=== PATIENT | female | born 1945 | race Caucasian/White ===

== ENCOUNTER → 2017-02-15 | Outpatient (REF) | payer MEDICARE, BC ==
[2017-02-15 19:12] LABS: ALBUMIN 3.6 GM/DL (3.2-5.2); ALBUMIN/GLOBULIN RATIO 1.29 (1.00-1.93); ALKALINE PHOSPHATASE 75 U/L (45-117); ALT/SGPT 21 U/L (12-78); ANION GAP 7 MEQ/L (8-16); AST/SGOT 12 U/L (15-37); BILIRUBIN,TOTAL 0.4 MG/DL (0.2-1.0); BLOOD UREA NITROGEN 20 MG/DL (7-18); CALCIUM LEVEL 8.8 MG/DL (8.8-10.2); CARBON DIOXIDE LEVEL 25 MEQ/L (21-32); CHLORIDE LEVEL 113 MEQ/L (98-107); CHOLESTEROL LEVEL 201 MG/DL (<200); CREATININE FOR GFR 0.87 MG/DL (0.55-1.02); GLOMERULAR FILTRATION RATE > 60.0 (>39); GLUCOSE, FASTING 134 MG/DL (83-110); POTASSIUM SERUM 4.3 MEQ/L (3.5-5.1); SODIUM LEVEL 145 MEQ/L (136-145); TOTAL PROTEIN 6.4 GM/DL (6.4-8.2); TRIGLYCERIDES LEVEL 144 MG/DL (<150)
[2017-02-15 19:30] LABS: BASO % 0.5 % (0.0-1.0); EOS # 0.7 K/mm3 (0.0-0.50); EOS % 14.7 % (0.0-3.0); LARGE UNSTAINED CELL # 0.1 K/mm3 (0.0-0.4); LYMPH # 1.3 K/mm3 (1.5-4.5); LYMPH % 25.2 % (24.0-44.0); MEAN CORPUSCULAR HEMOGLOBIN 32.2 pg (27.0-33.0); MEAN CORPUSCULAR HGB CONC 32.9 g/dl (32.0-36.5); MEAN CORPUSCULAR VOLUME 97.9 fl (80.0-96.0); MONO # 0.3 K/mm3 (0.0-0.8); MONO % 5.6 % (0.0-5.0); NEUTROPHILS # 2.6 K/mm3 (1.8-7.7); PLATELET COUNT, AUTOMATED 303 k/mm3 (150-450); RED CELL DISTRIBUTION WIDTH 13.2 % (11.5-14.5)
== END ==
LOC: M SFHCCAPE 07:23
PROVIDERS: ATTEND Physician Assistant
DX: E03.9 Hypothyroidism, unspecified (principal); R73.09 Other abnormal glucose; E78.5 Hyperlipidemia, unspecified; I10 Essential (primary) hypertension

== ENCOUNTER → 2017-02-17 | Outpatient (CLI) | payer MEDICARE, BC ==
--- NOTE | 2017-02-17 15:03 | REP ---
Clinical: Asthma . Comparison: None . Technique: PA and lateral. Findings: The mediastinum and cardiac silhouette are normal. The lung rodgers are clear and without acute consolidation, effusion, or pneumothorax. The skeletal structures are intact and normal. Impression: 1. No acute cardiopulmonary process.
== END ==
LOC: M CLY 14:34
PROVIDERS: ATTEND Physician Assistant
DX: J45.20 Mild intermittent asthma, uncomplicated (principal)

== ENCOUNTER → 2017-05-18 | Outpatient (REF) | payer MEDICARE, BC ==
[2017-05-18 16:48] LABS: ALBUMIN 3.6 GM/DL (3.2-5.2); ALKALINE PHOSPHATASE 89 U/L (45-117); ALT/SGPT 20 U/L (12-78); ANION GAP 11 MEQ/L (8-16); AST/SGOT 12 U/L (15-37); BILIRUBIN,TOTAL 0.5 MG/DL (0.2-1.0); BLOOD UREA NITROGEN 21 MG/DL (7-18); CALCIUM LEVEL 9.2 MG/DL (8.8-10.2); CARBON DIOXIDE LEVEL 23 MEQ/L (21-32); CHLORIDE LEVEL 112 MEQ/L (98-107); CREATININE FOR GFR 0.87 MG/DL (0.55-1.02); GLOMERULAR FILTRATION RATE > 60.0 (>39); GLUCOSE, FASTING 147 MG/DL (83-110); POTASSIUM SERUM 4.5 MEQ/L (3.5-5.1); SODIUM LEVEL 146 MEQ/L (136-145); TOTAL PROTEIN 6.6 GM/DL (6.4-8.2)
== END ==
LOC: M SFHCCAPE 07:13
PROVIDERS: ATTEND Physician Assistant
DX: E11.9 Type 2 diabetes mellitus without complications (principal)

== ENCOUNTER → 2017-08-24 | Outpatient (REF) | payer MEDICARE, BC ==
[2017-08-24 19:30] LABS: BASO % 0.7 % (0.0-1.0); EOS # 0.6 10^3/uL (0.0-0.50); EOS % 9.4 % (0.0-3.0); IMMATURE GRANULOCYTE % 0.2 % (0-0); LYMPH # 1.5 10^3/uL (1.5-4.5); LYMPH % 25.7 % (24.0-44.0); MEAN CORPUSCULAR HEMOGLOBIN 30.5 pg (27.0-33.0); MEAN CORPUSCULAR HGB CONC 33.1 g/dl (32.0-36.5); MEAN CORPUSCULAR VOLUME 92.2 fl (80.0-96.0); MONO # 0.5 10^3/uL (0.0-0.8); MONO % 8.1 % (0.0-5.0); NEUTROPHILS # 3.3 10^3/uL (1.8-7.7); NEUTROPHILS % 55.9 % (36.0-66.0); PLATELET COUNT, AUTOMATED 295 10^3/uL (150-450); RED CELL DISTRIBUTION WIDTH 12.8 % (11.5-14.5)
[2017-08-24 20:27] LABS: ALBUMIN 3.9 GM/DL (3.2-5.2); ALBUMIN/GLOBULIN RATIO 1.44 (1.00-1.93); ALKALINE PHOSPHATASE 78 U/L (45-117); ALT/SGPT 22 U/L (12-78); ANION GAP 8 MEQ/L (8-16); AST/SGOT 14 U/L (7-37); BILIRUBIN,TOTAL 0.4 MG/DL (0.2-1.0); BLOOD UREA NITROGEN 19 MG/DL (7-18); CALCIUM LEVEL 9.2 MG/DL (8.8-10.2); CARBON DIOXIDE LEVEL 25 MEQ/L (21-32); CHLORIDE LEVEL 109 MEQ/L (98-107); CHOLESTEROL LEVEL 218 MG/DL (<200); CREATININE FOR GFR 0.84 MG/DL (0.55-1.02); GLOMERULAR FILTRATION RATE > 60.0 (>39); GLUCOSE, FASTING 129 MG/DL (83-110); POTASSIUM SERUM 4.4 MEQ/L (3.5-5.1); SODIUM LEVEL 142 MEQ/L (136-145); TOTAL PROTEIN 6.6 GM/DL (6.4-8.2); TRIGLYCERIDES LEVEL 115 MG/DL (<150)
== END ==
LOC: M SFHCCAPE 07:25
PROVIDERS: ATTEND Physician Assistant
DX: E11.69 Type 2 diabetes mellitus with other specified complication (principal)

== ENCOUNTER → 2017-11-30 | Outpatient (REF) | payer MEDICARE, BC ==
[2017-11-30 17:36] LABS: ALBUMIN/GLOBULIN RATIO 1.48 (1.00-1.93); ALKALINE PHOSPHATASE 71 U/L (45-117); ALT/SGPT 21 U/L (12-78); ANION GAP 9 MEQ/L (8-16); AST/SGOT 17 U/L (7-37); BILIRUBIN,TOTAL 0.5 MG/DL (0.2-1.0); BLOOD UREA NITROGEN 19 MG/DL (7-18); CALCIUM LEVEL 9.3 MG/DL (8.8-10.2); CARBON DIOXIDE LEVEL 25 MEQ/L (21-32); CHLORIDE LEVEL 109 MEQ/L (98-107); CREATININE FOR GFR 0.94 MG/DL (0.55-1.30); FREE T4 1.33 NG/DL (0.76-1.46); GLOMERULAR FILTRATION RATE > 60.0 (>39); GLUCOSE, FASTING 115 MG/DL (70-100); POTASSIUM SERUM 4.4 MEQ/L (3.5-5.1); SODIUM LEVEL 143 MEQ/L (136-145); TOTAL PROTEIN 6.7 GM/DL (6.4-8.2)
[2017-11-30 21:42] LABS: ESTIMATED AVERAGE GLUCOSE 123 MG/DL (60-110); HEMOGLOBIN A1c 5.9 %
== END ==
LOC: M SFHCCAPE 07:25
DX: E11.69 Type 2 diabetes mellitus with other specified complication (principal); E03.9 Hypothyroidism, unspecified
CPT/HCPCS: 84443

== ENCOUNTER → 2018-03-15 | Outpatient (REF) | payer MEDICARE, BC ==
[2018-03-15 16:48] LABS: ANION GAP 8 MEQ/L (8-16); BLOOD UREA NITROGEN 21 MG/DL (7-18); CALCIUM LEVEL 9.4 MG/DL (8.8-10.2); CARBON DIOXIDE LEVEL 26 MEQ/L (21-32); CHLORIDE LEVEL 110 MEQ/L (98-107); CHOLESTEROL LEVEL 181 MG/DL (<200); CREATININE FOR GFR 0.94 MG/DL (0.55-1.30); GLOMERULAR FILTRATION RATE > 60.0 (>39); GLUCOSE, FASTING 100 MG/DL (70-100); HDL CHOLESTEROL 58 MG/DL (>40); LDL CHOLESTEROL 103.8 MG/DL (<100); NON-HDL-C 123 MG/DL; POTASSIUM SERUM 4.5 MEQ/L (3.5-5.1); SODIUM LEVEL 144 MEQ/L (136-145); TRIGLYCERIDES LEVEL 96 MG/DL (<150)
[2018-03-15 16:54] LABS: ESTIMATED AVERAGE GLUCOSE 123 MG/DL (60-110); HEMOGLOBIN A1c 5.9 %
== END ==
LOC: M SFHCCAPE 07:35
DX: E11.69 Type 2 diabetes mellitus with other specified complication (principal); E78.5 Hyperlipidemia, unspecified
CPT/HCPCS: 83036

== ENCOUNTER → 2018-09-06 | Outpatient (REF) | payer MEDICARE, BC ==
[2018-09-06 16:42] LABS: ANION GAP 7 MEQ/L (8-16); BLOOD UREA NITROGEN 18 MG/DL (7-18); CALCIUM LEVEL 9.2 MG/DL (8.8-10.2); CARBON DIOXIDE LEVEL 27 MEQ/L (21-32); CHLORIDE LEVEL 110 MEQ/L (98-107); CHOLESTEROL LEVEL 209 MG/DL (<200); CREATININE FOR GFR 0.86 MG/DL (0.55-1.30); GLOMERULAR FILTRATION RATE > 60.0 (>39); GLUCOSE, FASTING 107 MG/DL (70-100); HDL CHOLESTEROL 62 MG/DL (>40); LDL CHOLESTEROL 131 MG/DL (<100); NON-HDL-C 147 MG/DL; POTASSIUM SERUM 4.6 MEQ/L (3.5-5.1); SODIUM LEVEL 144 MEQ/L (136-145); THYROID STIMULATING HORMONE 0.925 uIU/ML (0.358-3.740); TRIGLYCERIDES LEVEL 79 MG/DL (<150)
[2018-09-06 17:10] LABS: ESTIMATED AVERAGE GLUCOSE 126 MG/DL (60-110)
== END ==
LOC: M SFHCCAPE 07:11
DX: E11.8 Type 2 diabetes mellitus with unspecified complications (principal); E78.5 Hyperlipidemia, unspecified; I10 Essential (primary) hypertension; E03.9 Hypothyroidism, unspecified
CPT/HCPCS: 84443

== ENCOUNTER → 2019-03-22 | Outpatient (REF) | payer MEDICARE, BC ==
[2019-03-22 18:19] LABS: ALBUMIN 3.7 GM/DL (3.2-5.2); ALT/SGPT 23 U/L (12-78); BILIRUBIN,TOTAL 0.5 MG/DL (0.2-1.0); BLOOD UREA NITROGEN 24 MG/DL (7-18); CALCIUM LEVEL 9.4 MG/DL (8.8-10.2); CARBON DIOXIDE LEVEL 26 MEQ/L (21-32); CHLORIDE LEVEL 111 MEQ/L (98-107); CHOLESTEROL LEVEL 210 MG/DL (<200); CHOLESTEROL RISK RATIO 3.333 (<5); CREATININE FOR GFR 0.89 MG/DL (0.55-1.30); GLOMERULAR FILTRATION RATE > 60.0 (>39); GLUCOSE, FASTING 103 MG/DL (70-100); HDL CHOLESTEROL 63 MG/DL (>40); LDL CHOLESTEROL 130 MG/DL (<100); NON-HDL-C 147 MG/DL; POTASSIUM SERUM 4.8 MEQ/L (3.5-5.1); SODIUM LEVEL 144 MEQ/L (136-145); THYROID STIMULATING HORMONE 0.795 uIU/ML (0.358-3.740); TOTAL PROTEIN 6.9 GM/DL (6.4-8.2); TRIGLYCERIDES LEVEL 84 MG/DL (<150)
[2019-03-22 18:31] LABS: HEMOGLOBIN A1c 5.9 %
[2019-03-22 18:36] LABS: CREATININE, URINE 75.6 MG/DL; MALB URINE SIEMENS 17.2 MG/L; MAU/CREAT RATIO 22.7 MCG/MG (0.0-30.0)
== END ==
LOC: M SFHCCAPE 07:22
PROVIDERS: ATTEND Family Medicine
DX: I10 Essential (primary) hypertension (principal); E11.8 Type 2 diabetes mellitus with unspecified complications; E78.5 Hyperlipidemia, unspecified; E03.9 Hypothyroidism, unspecified

== ENCOUNTER → 2019-10-05 | Outpatient (REF) | payer MEDICARE, BC ==
[2019-10-05 17:13] LABS: HEMATOCRIT 41.7 % (36.0-47.0); HEMOGLOBIN 13.9 g/dl (12.0-15.5); MEAN CORPUSCULAR HEMOGLOBIN 31.7 pg (27.0-33.0); MEAN CORPUSCULAR HGB CONC 33.3 g/dl (32.0-36.5); PLATELET COUNT, AUTOMATED 250 10^3/uL (150-450); RED BLOOD COUNT 4.39 10^6/uL (4.00-5.40); WHITE BLOOD COUNT 6.8 10^3/uL (4.0-10.0)
[2019-10-05 17:40] LABS: ALBUMIN 3.8 GM/DL (3.2-5.2); ALT/SGPT 19 U/L (12-78); BILIRUBIN,TOTAL 0.6 MG/DL (0.2-1.0); BLOOD UREA NITROGEN 19 MG/DL (7-18); CALCIUM LEVEL 9.3 MG/DL (8.8-10.2); CARBON DIOXIDE LEVEL 23 MEQ/L (21-32); CHLORIDE LEVEL 110 MEQ/L (98-107); CHOLESTEROL LEVEL 222 MG/DL (<200); CHOLESTEROL RISK RATIO 4.036 (<5); CREATININE FOR GFR 0.95 MG/DL (0.55-1.30); GLOMERULAR FILTRATION RATE > 60.0 (>39); GLUCOSE, FASTING 119 MG/DL (70-100); HDL CHOLESTEROL 55 MG/DL (>40); LDL CHOLESTEROL 123 MG/DL (<100); NON-HDL-C 167 MG/DL; POTASSIUM SERUM 4.4 MEQ/L (3.5-5.1); SODIUM LEVEL 142 MEQ/L (136-145); TOTAL PROTEIN 6.5 GM/DL (6.4-8.2); TRIGLYCERIDES LEVEL 221 MG/DL (<150)
[2019-10-05 18:05] LABS: HEMOGLOBIN A1c 6.2 %
== END ==
LOC: M SFHCCAPE 07:48
PROVIDERS: ATTEND Family Medicine
DX: M17.0 Bilateral primary osteoarthritis of knee (principal); E11.8 Type 2 diabetes mellitus with unspecified complications; E78.5 Hyperlipidemia, unspecified; E03.9 Hypothyroidism, unspecified

== ENCOUNTER → 2020-03-25 | Outpatient (REF) | payer MEDICARE, BC ==
[2020-03-25 12:15] LABS: BASO % 0.5 % (0.0-1.0); EOS # 0.5 10^3/uL (0.0-0.5); EOS % 8.4 % (0.0-3.0); HEMATOCRIT 45.1 % (36.0-47.0); LYMPH # 1.3 10^3/uL (1.5-5.0); MEAN CORPUSCULAR HEMOGLOBIN 32.5 pg (27.0-33.0); MEAN CORPUSCULAR HGB CONC 33.3 g/dl (32.0-36.5); MEAN CORPUSCULAR VOLUME 97.8 fl (80.0-96.0); MONO # 0.5 10^3/uL (0.0-0.8); MONO % 8.5 % (0.0-5.0); NEUTROPHILS # 3.9 10^3/uL (1.5-8.5); NEUTROPHILS % 61.1 % (36.0-66.0); PLATELET COUNT, AUTOMATED 273 10^3/uL (150-450); RED BLOOD COUNT 4.61 10^6/uL (4.00-5.40); WHITE BLOOD COUNT 6.3 10^3/uL (4.0-10.0)
[2020-03-25 12:25] LABS: ALBUMIN 3.8 GM/DL (3.2-5.2); BILIRUBIN,TOTAL 0.6 MG/DL (0.2-1.0); CALCIUM LEVEL 9.7 MG/DL (8.8-10.2); CHOLESTEROL RISK RATIO 3.728 (<5); FREE T4 1.45 NG/DL (0.76-1.46); GLOMERULAR FILTRATION RATE 57.9 (>39); POTASSIUM SERUM 4.7 MEQ/L (3.5-5.1); THYROID STIMULATING HORMONE 1.84 uIU/ML (0.358-3.740); TOTAL PROTEIN 6.9 GM/DL (6.4-8.2)
[2020-03-25 12:33] LABS: MALB URINE SIEMENS 8.1 MG/L; MAU/CREAT RATIO 6.1 MCG/MG (0.0-30.0)
[2020-03-25 15:14] LABS: HEMOGLOBIN A1c 6.8 %
== END ==
LOC: M SFHCCLAY 07:06
PROVIDERS: ATTEND Family Medicine
DX: E11.8 Type 2 diabetes mellitus with unspecified complications (principal); I10 Essential (primary) hypertension; E03.9 Hypothyroidism, unspecified; E78.5 Hyperlipidemia, unspecified; M17.0 Bilateral primary osteoarthritis of knee

== ENCOUNTER → 2020-08-08 | Outpatient (CLI) | payer MEDICARE, BC ==
--- NOTE | 2020-08-13 19:29 | REPMRS ---
Patient History The patient states she has not had a clinical breast exam in over a year. Patient is postmenopausal and is nulliparous. No known family history of cancer. Digital Woman Screen Mammo: August 08, 2020 - Exam #: [id number] Bilateral CC and MLO view(s) were taken. Technologist: Kaila Medina, Technologist Prior study comparison: July 20, 2019, bilateral digital mammo screening bilat, performed at [facility]. July 04, 2018, bilateral digital mammo screening bilat, performed at [facility]. June 23, 2017, bilateral digital mammo screening bilat, performed at [facility]. FINDINGS: The breast tissue is almost entirely fat. The Volpara volumetric breast density category is: A. There has been no change in the appearance of the mammogram from the prior studies. There is no interval development of dominant mass, architectural distortion, or grouped microcalcification typical of malignancy. 3-D tomosynthesis shows no additional findings. Assessment: BI-RADS/ACR category 1 mammogram. Negative Mammogram. Recommendation Routine screening mammogram of both breasts in 1 year (for women over age 40). This patient's Lifetime Breast Cancer RIsk is estimated at 4.3 %. This mammogram was interpreted with the aid of an FDA-approved computer-aided dectection system. Electronically Signed By: Soham Nicholson MD 08/13/20 [id number]
== END ==
LOC: M WHC 08:35
PROVIDERS: ATTEND Family Medicine
DX: Z12.31 Encounter for screening mammogram for malignant neoplasm of breast (principal)

== ENCOUNTER → 2020-10-02 | Outpatient (REF) | payer MEDICARE, BC ==
[2020-10-02 12:05] LABS: CREATININE FOR GFR 1.12 MG/DL (0.55-1.30); GLOMERULAR FILTRATION RATE 50.8 (>39); POTASSIUM SERUM 4.7 MEQ/L (3.5-5.1); THYROID STIMULATING HORMONE 1.69 uIU/ML (0.358-3.740)
[2020-10-02 14:40] LABS: HEMOGLOBIN A1c 6.3 %
== END ==
LOC: M SFHCCLAY 09:08
PROVIDERS: ATTEND Family Medicine
DX: E11.8 Type 2 diabetes mellitus with unspecified complications (principal); E03.9 Hypothyroidism, unspecified

== ENCOUNTER 2020-11-08 07:19 | Emergency (ER) | payer MEDICARE, BC ==
[~2020-11-08] VITALS: Ht 175.3 cm; Wt 104.5 kg
--- OUTSIDE RECORDS SUMMARY | 2020-11-08 07:28 | CCD ---
Author Author [facility] Organization [facility] Address Unknown Phone Unavailable Care Team Providers Care Boilermaking Supervisor Name Role Phone JUAN HORNE MD Unavailable Unavailable JUAN HORNE MD Unavailable Unavailable JUAN HORNE MD Unavailable Unavailable JUAN HORNE MD Unavailable Unavailable JUAN HORNE MD Unavailable Unavailable JUAN HORNE MD Unavailable Unavailable JUAN HORNE MD Unavailable Unavailable JUAN HORNE MD Unavailable Unavailable JUAN HORNE MD Unavailable Unavailable JUAN HORNE MD Unavailable Unavailable JUAN HORNE MD Unavailable Unavailable JUAN HORNE MD Unavailable Unavailable JUAN HORNE MD Unavailable Unavailable JUAN HORNE MD Unavailable Unavailable JUAN HORNE MD Unavailable Unavailable JUAN HORNE MD Unavailable Unavailable JUAN HORNE MD Unavailable Unavailable JUAN HORNE MD Unavailable Unavailable JUAN HORNE MD Unavailable Unavailable JUAN HORNE MD Unavailable Unavailable JUAN HORNE MD Unavailable Unavailable JUAN HORNE MD Unavailable Unavailable JUAN HORNE MD Unavailable Unavailable JUAN HORNE MD Unavailable Unavailable JUAN HORNE MD Unavailable Unavailable JUAN HORNE MD Unavailable Unavailable JUAN HORNE MD Unavailable Unavailable JUAN HORNE MD Unavailable Unavailable JUAN HORNE MD Unavailable Unavailable JUAN HORNE MD Unavailable Unavailable JUAN HORNE MD Unavailable Unavailable JUAN HORNE MD Unavailable Unavailable JUAN HORNE MD Unavailable Unavailable JUAN HORNE MD Unavailable Unavailable JUAN HORNE MD Unavailable Unavailable CHROSTOWSKI, JUAN LOCKHART Unavailable Unavailable CHROSTOWSKI, JUAN LOCKHART Unavailable Unavailable CHROSTOWSKI, JUAN LOCKHART Unavailable Unavailable CHROSTOWSKI, JUAN LOCKHART Unavailable Unavailable CHROSTOWSKI, JUAN LOCKHART Unavailable Unavailable [place], L Jayna PHOTOVOLTAIC INSTALLER Unavailable Unavailable Glenn, L Jayna PHOTOVOLTAIC INSTALLER Unavailable Unavailable Glenn, L Jayna PHOTOVOLTAIC INSTALLER Unavailable Unavailable [place], L Jayna PHOTOVOLTAIC INSTALLER Unavailable Unavailable [place], L Jayna PHOTOVOLTAIC INSTALLER Unavailable Unavailable [place], L Jayna PHOTOVOLTAIC INSTALLER Unavailable Unavailable Glenn, L Jayna PHOTOVOLTAIC INSTALLER Unavailable Unavailable [place], L Jayna PHOTOVOLTAIC INSTALLER Unavailable Unavailable [place], L Jayna PHOTOVOLTAIC INSTALLER Unavailable Unavailable Glenn, L Jayna PHOTOVOLTAIC INSTALLER Unavailable Unavailable [place], L Jayna PHOTOVOLTAIC INSTALLER Unavailable Unavailable Glenn, L Jayna PHOTOVOLTAIC INSTALLER Unavailable Unavailable Glenn, L Jayna PHOTOVOLTAIC INSTALLER Unavailable Unavailable Glenn, L Jayna PHOTOVOLTAIC INSTALLER Unavailable Unavailable [place], L Jayna PHOTOVOLTAIC INSTALLER Unavailable Unavailable [place], L Jayna PHOTOVOLTAIC INSTALLER Unavailable Unavailable [place], L Jayna PHOTOVOLTAIC INSTALLER Unavailable Unavailable [place], L Jayna PHOTOVOLTAIC INSTALLER Unavailable Unavailable Glenn, L Jayna PHOTOVOLTAIC INSTALLER Unavailable Unavailable [place], L Jayna PHOTOVOLTAIC INSTALLER Unavailable Unavailable [place], L Jayna PHOTOVOLTAIC INSTALLER Unavailable Unavailable Glenn, L Jayna PHOTOVOLTAIC INSTALLER Unavailable Unavailable Glenn, L Jayna PHOTOVOLTAIC INSTALLER Unavailable Unavailable Glenn, L Jayna PHOTOVOLTAIC INSTALLER Unavailable Unavailable Glenn, L Jayna PHOTOVOLTAIC INSTALLER Unavailable Unavailable Glenn, L Jayna PHOTOVOLTAIC INSTALLER Unavailable Unavailable [place], L Jayna PHOTOVOLTAIC INSTALLER Unavailable Unavailable Glenn, L Jayna PHOTOVOLTAIC INSTALLER Unavailable Unavailable Glenn, L Jayna PHOTOVOLTAIC INSTALLER Unavailable Unavailable [place], L Jayna PHOTOVOLTAIC INSTALLER Unavailable Unavailable Glenn, L Jayna PHOTOVOLTAIC INSTALLER Unavailable Unavailable Glenn, L Jayna PHOTOVOLTAIC INSTALLER Unavailable Unavailable Glenn, L Jayna PHOTOVOLTAIC INSTALLER Unavailable Unavailable Re-disclosure Warning The records that you are about to access may contain information from federally-assisted alcohol or drug abuse programs. If such information is present, then the following federally mandated warning applies: This information has been disclosed to you from records protected by federal confidentiality rules (42 CFR part 2). The federal rules prohibit you from making any further disclosure of this information unless further disclosure is expressly permitted by the written consent of the person to whom it pertains or as otherwise permitted by 42 CFR part 2. A general authorization for the release of medical or other information is NOT sufficient for this purpose. The Federal rules restrict any use of the information to criminally investigate or prosecute any alcohol or drug abuse patient.The records that you are about to access may contain highly sensitive health information, the redisclosure of which is protected by Article 27-F of the [facility] Public Health law. If you continue you may have access to information: Regarding HIV / AIDS; Provided by facilities licensed or operated by the [facility] Office of Mental Health; or Provided by the [facility] Office for People With Developmental Disabilities. If such information is present, then the following [facility] mandated warning applies: This information has been disclosed to you from confidential records which are protected by state law. State law prohibits you from making any further disclosure of this information without the specific written consent of the person to whom it pertains, or as otherwise permitted by law. Any unauthorized further disclosure in violation of state law may result in a fine or fci sentence or both. A general authorization for the release of medical or other information is NOT sufficient authorization for further disc losure. Encounters Encounter Providers Location Date Indications Data Source(s ) Outpatient Attender: JUAN HORNE MD Main Office 10/16/2020 08:15:00 AM EST [facility] ([facility]) Outpatient [address] [place] [phone] 10/15/2020 12:00:00 AM EST eCW1 (Formerly [facility]) Outpatient [address] [place] [phone] 07/04/2020 12:00:00 AM EDT eCW1 (Formerly [facility]) Outpatient Attender: Jayna ALMODOVAR Main Office 10/17/2019 08:30:0 0 AM EST [facility] ([facility]) [facility] [place] [address] [place] [phone] 10/09/2019 12:00:00 AM EST eCW1 (Formerly [facility]) [facility] Yeimi Ng [address] [place] [phone] 10/05/2019 12:00:00 AM EST eCW1 (Formerly [facility]) Immunizations Vaccine Date Status Description Data Source(s) influenza, recombinant, quadrIvalent,injectable, prese rvative free 07/04/2020 02:09:00 PM EDT completed eCW1 ([facility]) influenza, recombinant, quadrIvalent,injectable, prese rvative free 07/04/2020 02:09:00 PM EDT completed eCW1 ([facility]) Tdap 04/04/2020 10:27:00 AM EDT completed e CW1 ([facility]) Tdap 04/04/2020 10:27:00 AM EDT completed e CW1 ([facility]) pneumococcal polysaccharide PPV23 04/04/2020 10:26:00 AM EDT comple ranjan eCW1 ([facility]cludes [facility]) pneumococcal polysaccharide PPV23 04/04/2020 10:26:00 AM EDT comple ranjan eCW1 ([facility]cludes [facility]) Medications Medication Brand Name Start Date Product Form Dose Route Admi nistrative Instructions Pharmacy Instructions Status Indications Reaction Description Data Source(s) Budesonide 0.08 MG/ACTUAT / formoterol f umarate 0.0045 MG/ACTUAT Metered Dose Inhaler Symbicort 80-4.5 mcg/actuation inhalation HFA aerosol inhaler Symbicort 80-4.5 mcg/actuation inhalation HFA aerosol inhaler 10/07/2018 11:35:51 AM EST 0 completed Symbicort ZINA NWHERBIE ([facility]) fluticasone 50 mcg/actuation nasal spray,suspension Fl uticasone propionate 0.05 MG/ACTUAT Metered Dose Nasal [place] 10/07/2018 11:35:50 AM EST 0 completed fluticasone [facility] ([facility] Insurance Providers Payer name Policy type / Coverage type Policy ID Covered alliance party ID Covered alliance party's relationship to you Policy You Plan Information MEDICARE [id number] SP [id number] [place]/307 [id number] SP [id number] [place]/[id number] SP [id number] Medicare [place] [id number] 18 [id number] [facility] [id number] 18 [id number] ANSI-Commercial [id number] ANSI-Medicare Part B [id number] ANSI-Commercial [id number] ANSI-Medicare Part B [id number] ANSI-Medicare Part B [id number] ANSI-Commercial [id number] ANSI-Medicare Part B [id number] ANSI-Commercial [id number] BCBS .[id number] Blue Cross/Blue Shield .[id number] Medicare .[id number] Medicare Part B .[id number] ANSI-Commercial [id number] [facility]-Medicare Part B [id number] ANSI-Commercial [id number] [facility]-Medicare Part B [id number] MEDICARE [id number] SP [id number] A Medicare [place] [id number] 18 [id number] [place] P[place] 302/307 [id number] SP [id number] MEDICARE [id number] SP [id number] A SELF PAY 5 UNAVAILABLE 1 UNAVAILA BLE BLUE CROSS [place] 1 [id number] Problems, Conditions, and Diagnoses Code Display Name Description Problem Type Effective Dates Data Source(s) Z23 [id number] Encounter for immunization Problem 0 12:00:00 AM EDT eCW1 ([facility]) I11.9 Hypertensive heart disease without conge stive heart failure Hypertensive heart disease without heart failure Problem 04/04/2020 12:00:00 AM E DT eCW1 ([facility]) E03.9 [id number] Acquired hypothyroidism Problem 04/04/2020 1 2:00:00 AM EDT eCW1 ([facility]) [id number] Allergic rhinitis caused by mold Allergi c rhinitis caused by mold Problem 10/17/2019 12:00:00 AM EST [facility] ([facility]) Note: 3+ reaction to mold spores on intr adermal test completed in 2017. Surgeries/Procedures Procedure Description Date Indications Data Source(s) BRNCDILAT RSPSE SPMTRY PRE&POST-BRNCDILAT ADMN 021 12:00:00 AM EST [facility] ([facility]) Immunization: Flublok Quadrivalent (18 years & older) 0.5mL IM (Influenza) 07/04/2020 12:00:00 AM EDT [facility]CW[facility] BRNCDILAT RSPSE SPMTRY PRE&POST-BRNCDILAT ADMN 020 12:00:00 AM EST [facility] ([facility]) Office Visit, Est Pt., Level 2 FC 10/09/2019 12:00:00 AM EST eCW1 ([facility]) Office Visit, Est Pt., Level 4 PC 10/09/2019 12:00:00 AM EST eCW1 ([facility]) VENIPUNCT, ROUTINE* 10/05/2019 12:00:00 AM EST eCW1 ([facility]) Results ID Date Data Source TSH 10/05/2019 12:00:00 AM EST eCW1 ([facility]) Name Value Range Interpretation Code Description Data Teresa rce(s) Supporting Document(s) 1.640 0.358-3.740 THYROID STIMULATING HORM ONE eCW1 ([facility]) ID Date Data Source LIPID PANEL (CARDIAC RISK) 10/05/2019 12:00:00 AM EST eCW1 ( [facility]) Name Value Range Interpretation Code Description Data Teresa rce(s) Supporting Document(s) Triglyceride [Mass/volume] in Serum or Plasma by calculation 221 <150 TRIGLYCERIDES LEVEL eCW1 ([facility]) 167 NON-HDL-C eCW1 ([facility]) Cholesterol in LDL [Mass/volume] in Serum or Plasma by calculation 123 <100 LDL CHOLESTEROL [facility] ([facility]) 4.036 <5 CHOLESTEROL RISK RATIO eCW1 ([facility]) Cholesterol [Moles/volume] in Serum or Plasma 222 <200 CHOLESTEROL LEVEL [facility] ([facility] Includes [facility]) Cholesterol in HDL [Moles/volume] in Serum or Plasma 55 >40 HDL CHOLESTEROL eCW1 ([facility]) ID Date Data Source [id number] 10/05/2019 12:00:00 AM EST eCW1 ([facility]) Name Value Range Interpretation Code Description Data Teresa rce(s) Supporting Document(s) Hemoglobin A1c/Hemoglobin.total in Blood 6.2 HEMOGLOBIN A1c eCW1 ([facility]) ID Date Data Source Comprehensive Metabolic Profile (CMP) 10/05/2019 12:00:00 AM EST eCW1 ([facility]) Name Value Range Interpretation Code Description Data Teresa rce(s) Supporting Document(s) 119 70-100 GLUCOSE, FASTING eCW1 ([facility]) 19 7-18 BLOOD UREA NITROGEN eCW1 ([facility]) 4.4 3.5-5.1 POTASSIUM SERUM eCW1 ([facility]) > 60.0 >39 GLOMERULAR FILTRATION RATE eCW 1 ([facility]) 0.95 0.55-1.30 CREATININE FOR GFR eCW1 ([facility]) 142 136-145 SODIUM LEVEL eCW1 ([facility]) 110 98-107 CHLORIDE LEVEL eCW1 ([facility]) 19 12-78 ALT/SGPT eCW1 ([facility]) 23 21-32 CARBON DIOXIDE LEVEL eCW1 ([facility]) 16 7-37 AST/SGOT eCW1 ([facility]) 9.3 8.8-10.2 CALCIUM LEVEL eCW1 ([facility]) 57 45-117 ALKALINE PHOSPHATASE eCW1 ([facility]) 0.6 0.2-1.0 BILIRUBIN,TOTAL eCW1 ([facility]) 6.5 6.4-8.2 TOTAL PROTEIN eCW1 ([facility]) 3.8 3.2-5.2 ALBUMIN eCW1 ([facility]) 1.41 1.00-1.93 ALBUMIN/GLOBULIN RATIO eCW1 ([facility]) ID Date Data Source CBC 10/05/2019 12:00:00 AM EST eCW1 ([facility]) Name Value Range Interpretation Code Description Data Teresa rce(s) Supporting Document(s) 13.9 12.0-15.5 HEMOGLOBIN eCW1 ([facility]) 4.39 4.00-5.40 RED BLOOD COUNT eCW1 ([facility]) 41.7 36.0-47.0 HEMATOCRIT eCW1 ([facility]) 6.8 4.0-10.0 WHITE BLOOD COUNT eCW1 ([facility]) 12.4 11.5-14.5 RED CELL DISTRIBUTION WID TH eCW1 ([facility]) 31.7 27.0-33.0 MEAN CORPUSCULAR HEMOGLOB IN eCW1 ([facility]cludes [facility]) 33.3 32.0-36.5 MEAN CORPUSCULAR HGB CONC eCW1 ([facility]cludes [facility]) 250 150-450 PLATELET COUNT, AUTOMATED eCW1 ([facility]cludes [facility]) 95.0 80.0-96.0 MEAN CORPUSCULAR VOLUME e CW1 ([facility]cludes [facility]) Procedure Social History Code Duration Value Status Description Data Source(s ) Smoking 10/16/2020 12:00:00 AM EST Patient has never smoked co mpleted Patient has never smoked [facility] ([facility] ) Smoking 10/15/2020 12:00:00 AM EST Never Smoker completed Never S moker eCW1 ([facility]) Smoking 07/04/2020 12:00:00 AM EDT Never Smoker completed Never S moker eCW1 ([facility]) Vital Signs ID Date Data Source UNK Name Value Range Interpretation Code Description Data Source(s) Body mass index (BMI) [Ratio] 33.4 kg/m2 33.4 k g/m2 [facility] ([facility]) Diastolic blood pressure 81 mm[Hg] 81 mm[Hg] [facility] ([facility]) Systolic blood pressure 145 mm[Hg] 145 mm[Hg] M EDENT ([facility]) Respiratory rate 18 /min 18 /min [facility] ( [facility]) Heart rate 69 /min 69 /min [facility] ([facility] Body height 68.5 [in_i] 68.5 [in_i] [facility] ([facility] 5'8.50" Body weight 223.00 [lb_av] 223.00 [lb_av] MEDEN T ([facility]) Diastolic blood pressure 84 mm[Hg] 84 mm[Hg] eCW1 ([facility]) Systolic blood pressure 164 mm[Hg] 164 mm[Hg] e CW1 ([facility]) Body temperature 98.4 [degF] 98.4 [degF] eCW1 ( [facility]cludes [facility]) Respiratory rate 18 /min 18 /min eCW1 ([facility]) Heart rate 74 /min 74 /min eCW1 ([facility]) Body mass index (BMI) [Ratio] 32.93 kg/m2 32.93 kg/m2 eCW1 ([facility]) Body height [in_i] eCW1 ([facility]) Body weight 223 [lb_av] 223 [lb_av] eCW1 ([facility]) Diastolic blood pressure 80 mm[Hg] 80 mm[Hg] eCW1 ([facility]) Systolic blood pressure 156 mm[Hg] 156 mm[Hg] e CW1 ([facility]cludes [facility]) Body temperature 98 [degF] 98 [degF] eCW1 ([facility]) Respiratory rate 18 /min 18 /min eCW1 ([facility]) Heart rate 80 /min 80 /min eCW1 ([facility]) Body mass index (BMI) [Ratio] 32.19 kg/m2 32.19 kg/m2 eCW1 ([facility]) Body height [in_i] eCW1 ([facility]) Body weight [lb_av] eCW1 ([facility]) Body mass index (BMI) [Ratio] 32.7 kg/m2 32.7 k g/m2 [facility] ([facility]) Diastolic blood pressure 81 mm[Hg] 81 mm[Hg] [facility] ([facility]) Systolic blood pressure 136 mm[Hg] 136 mm[Hg] M EDENT ([facility]) Respiratory rate 20 /min 20 /min [facility] ( [facility]) Heart rate 67 /min 67 /min [facility] ([facility] Body height 68.5 [in_i] 68.5 [in_i] [facility] ([facility] 5'8.50" Body weight 218.00 [lb_av] 218.00 [lb_av] MEDEN T ([facility]) Diastolic blood pressure 96 mm[Hg] 96 mm[Hg] eCW1 ([facility]) Systolic blood pressure 162 mm[Hg] 162 mm[Hg] e CW1 ([facility]cludes [facility]) Body temperature 97.4 [degF] 97.4 [degF] eCW1 ( [facility]cludes [facility]) Respiratory rate 18 /min 18 /min eCW1 ([facility]) Heart rate 68 /min 68 /min eCW1 ([facility]) Body mass index (BMI) [Ratio] 32.19 kg/m2 32.19 kg/m2 eCW1 ([facility]) Body height [in_us] eCW1 ([facility]) Body weight Measured 218 [lb_av] 218 [lb_av] eC W1 ([facility]) Patient Treatment Plan of Care Planned Activity Planned Date Details Description Data Source (s) Budesonide 0.08 MG/ACTUAT / formoterol f umarate 0.0045 MG/ACTUAT Metered Dose Inhaler 10/07/2018 11:35:[address] ([facility]) fluticasone 50 mcg/actuation nasal spray,suspension 10/07/19 11:35:50 AM EST [facility] ([facility]
--- OUTSIDE RECORDS SUMMARY | 2020-11-08 07:28 | CCD | Continuity of Care Document ---
Author Lindsey Durant Organization Unknown Address [address], [place] [address] Phone [phone] Care Team Providers Care Nanotechnology Engineering Technician Name Role Phone Vivi Ahn PA-C Unavailable Problems Active Problems Provider Date Allergic rhinitis caused by mold LELAND Dumont Onset: 10/17/2019 Note: 3+ reaction to mold spores on intr adermal test completed in 2017. Social History Type Date Description Comments Sex Unknown Tobacco Use Reviewed: 10/16/20 Patient has never smoked Smoking Status Reviewed: 10/16/20 Patient has never smoked Allergies, Adverse Reactions, Alerts Description No Known Drug Allergies Medications Active Medications SIG Qnty Indications Ordering Provide r Date Benicar 20mg Tablets take 1 tablet (20 mg) by oral route once daily Unknown 0 000 Zetia 10mg Tablets take 1 tablet (10 mg) by oral route once daily Unknown 0 000 Fluticasone Propionate 50mcg/Act Suspension inhale 2 puffs by nasal route once a day (in the evening) fo r 90 days 48gm J30.89 Iron Goncalves M.D. Symbicort 80-4.5mcg/Act Aerosol inhale 2 puffs by inhalation route 2 times per day in the morning and evening for 90 days 30.6gm J45.30 Iron Goncalves M.D. Diclofenac Sodium 1% Gel Apply as needed Rena Collins DO Levothyroxine Sodium 112mcg Tablet s Take 1 tablet once daily Rena Collins DO 00 Metformin HCL 500mg Tablets Take 1 tablet once daily Rena Collins DO Naproxen Sodium ER 500mg Tablets E R 24HR Take 1 tablet once daily as needed Aguila Collins DO Immunizations Description No Information Available Vital Signs Date Vital Result Comment 10/16/2020 9:27am Weight 223.00 lb Height 68.5 inches 5'8.50" Heart Rate 69 /min Respiratory Rate 18 /min BP Systolic 145 mmHg BP Diastolic 81 mmHg BMI (Body Mass Index) 33.4 kg/m2 10/17/2019 9:26am Weight 218.00 lb Height 68.5 inches 5'8.50" Heart Rate 67 /min Respiratory Rate 20 /min BP Systolic 136 mmHg BP Diastolic 81 mmHg BMI (Body Mass Index) 32.7 kg/m2 Results Description No Information Available Procedures Date Code Description Status 10/16/2020 49133 Bronchodilation Resp onsiveness Spirometry Pre/Post Bronchodil Adm Completed Medical Devices Description No Information Available Encounters Type Date Location Provider Dx Diagnosis Office Visit 10/16/2020 9:15a Main Office Iron Goncalves M.D. J30.89 Other allergic rhinitis J45.30 Mild persistent asthma, unco mplicated Assessments Date Code Description Provider 10/16/2020 J30.89 Allergic rhinitis due to molds s reece Goncalves M.D. 10/16/2020 J45.30 Mild persistent asthma, uncompli cated Iron Goncalves M.D. Plan of Treatment Future Appointment(s):* 10/16/2021 9:15 am - Iron Goncalves M.D. at Main Office 10/16/2020 - Iron Goncalves M.D.* J30.89 Allergic rhinitis due to molds spores* Recommendations:* May stop Flonase for the winter months. May need to restart in the spring as that is usually the time when her symptoms exacerbate. Effective allergy avoidance measures were reviewed. * J45.30 Mild persistent asthma, uncomplicated* Recommendations:* The patient should continue on daily Symbicort. I also explained the risks and benefits associated with use of inhaled steroids and proper MDI technique. The patient should still use albuterol prn cough and wheezing and for activity prophy laxis. * All * Follow up:* 12 months. Sooner if needed. Functional Status Description No Information Available Mental Status Description No Information Available Referrals Description No Information Available
--- OUTSIDE RECORDS SUMMARY | 2020-11-08 07:28 | CCD | Continuity of Care Document ---
Author Lindsey Durant Organization Unknown Address [address], [address], [place] [address] Phone [phone] Care Team Providers Care Manager Of Radiology Name Role Phone Vivi Ahn PA-C Unavailable [...] 1 tablet once daily as needed Aguila Collinsan DO Immunizations Description No Information Available Vital [...] Available Procedures Date Code Description Status 10/16/2020 50059 Bronchodilation Resp onsiveness Spirometry Pre/Post Bronchodil Adm [...] cated Iron Goncalves M.D. Plan of Treatment 10/16/2020 - Iron Goncalves M.D.* J30.89 Allergic [...]
--- OUTSIDE RECORDS SUMMARY | 2020-11-08 07:28 | CCD ---
Author Author [facility] Organization [facility] Address Unknown Phone Unavailable Care Team Providers Care Stamp Clerk Name Role Phone Rena Collins Unavailable PROBLEMS Type Condition ICD9-CM Code [id number] Code Onset Dates Condition S tatus SNOMED Code Notes Problem Hypertension I10 Active 68494474 Labile Problem Hyperlipidemia E78.5 Active 57205400 Problem Environmental and seasonal allergies J30.89 Act viktoria 283125558 Problem Mild intermittent asthma with acute exacerbation J 45.21 Active 608794178 Problem Type 2 diabetes mellitus with other specified complication E11.69 Active 78905691 Problem Obesity, unspecified E66.9 Active 300787966 Problem Type 2 diabetes mellitus wit h complication, without long-term current use of insulin E11.8 Active 95246389 Problem Acquired hypothyroidism E03.9 Active 74312149 2 Problem Type 2 diabetes mellitus without complications E11 .9 Active 25517788 Problem Encounter for immunization Z23 Active 56064 8001 Problem Mild intermittent asthma without complication J45. 20 Active 723230482 Problem Environmental allergies Z91.09 Active 96157723 7 Problem Primary osteoarthritis of both knees M17.0 Act viktoria 501320319 Problem Sciatica of left side M54.32 Active 98341459 Problem Hypertensive heart disease without heart failure I 11.9 Active 81065987 ALLERGIES No Known Allergies ENCOUNTERS from 1945 to 2020-10-22 Encounter Location Date Provider Diagnosis [facility] [place] [address] Oct Rena Collins Hypertensive heart disease without heart failure I11.9 ; Type 2 diabetes mellitus with complication, without long-term current use of insulin E11.8 ; Acquired hypothyroidism E03.9 ; Primary osteoarthritis of both knees M17.0 ; Hyperlipidemia E78.5 and Skin change R23.9 IMMUNIZATIONS Vaccine Route Administration Date Status Influenza (Pharmacy Given) Unknown Jul 31, 2019 Admin istered Influenza (18 yrs & older) Flublok IM Intramuscular Jul 04, 2020 Administered Influenza (High Dose 65 & up) Unknown Jul 18, 2018 Ad ministered Influenza (High Dose 65 & up) IM Intramuscular Aug 05, 2017 A dministered Influenza (High Dose 65 & up) Unknown Jul 23, 2016 Ad ministered Pneumococcal Adult 0.5mL (Pneumovax 23) IM Intramuscular April Administered TDAP 0.5mL (Boostrix) IM Intramuscular April 04, 2020 Administe red Pneumococcal 0.5mL (Prevnar 13) IM Intramuscular Sep 23, 2018 Administered SOCIAL HISTORY Tobacco Use: Social History Observation Description Date Details (start date - stop date) Never Smoker Sex Assigned At : Social History Observation Description Sex Assigned At Unknown Education: Question Answer Notes Level of Education: Professional Schools/Masters/PhD Audit Question Answer Notes Total Score: 4 Interpretation: Alcohol Education Scientology: Question Answer Notes Scientology No jehovah's witness beliefs that would impact health care. Sexual Hx: Question Answer Notes Had sex in the last 12 months (vaginal, oral, or anal)? No Have you ever had an STD? No Drug and Alcohol Question Answer Notes Total Score: 0 Interpretation: No problems reported Alcohol Screening: Question Answer Notes Did you have a drink containing alcohol in the past year? Ye s Points 3 Interpretation Positive How often did you have six or more drinks on one occas ion in the past year? Never (0 points) How many drinks did you have on a typica l day when you were drinking in the past year? 1 or 2 (0 points) How often did you have a drink containing alcohol in t he past year? Two to three times per week (3 points) BMI Care Goal Follow-Up Question Answer Notes Above Normal BMI Follow-Up Dietary management educatio n, guidance, and counseling Tobacco Use: Question Answer Notes Are you a: never smoker updated 10/15/2020 Additional Findings: Tobacco User no Additional Findings: Tobacco Non-User no REASON FOR REFERRAL No Information VITAL SIGNS Weight 223 lbs Oct, Height 5'9" in Oct, BMI 32.93 kg/m2 Oct, Heart Rate 74 /min Oct, Respiratory Rate 18 /min Oct, Temperature 98.4 degrees Fahrenheit Oct, Oximetry 9RA Oct, Blood pressure systolic 164 mm Hg Oct, Blood pressure diastolic 84 mm Hg Oct, MEDICATIONS Medication SIG (Take, Route, Frequency, Duration) Notes Start Da te End Date Status Voltaren 1 % apply Transdermal bid for 90 days Apr, 9 Active Benicar 20 mg 1 tab(s) Orally daily for 90 days Active Metformin HCl 500 mg 1 tablet with meals Orally before bedtime for 90 days Active Levothyroxine Sodium 112 MCG 1 tablet on an empty stom ach in the morning Orally Once a day for 90 days Active Multi Complete - Orally Active Symbicort 160-4.5 MCG/ACT 2 puffs Inhalation Twice a day Active Flonase Daily Active Zetia 10 mg 1 tablet Orally Once a day for 90 days Active Naproxen Sodium ER 500 mg 1 tablet Orally daily PRN for 90 days Active Ventolin HFA 108 (90 Base) MCG/ACT 2 puffs as needed Inhalat ion qid prn for sob Active Biotin 10 MG Orally Active PROCEDURES No Information RESULTS No Results REASON FOR VISIT follow-up diabetes, blood pressure, hypothyroid MEDICAL (GENERAL) HISTORY Type Description Date Medical History Cataracts felisa had surgrey Medical History hypertension Medical History hyperlipidemia Medical History hypothyroidism Medical History asthma Surgical History tubal Surgical History felisa cataracts wears reading glasses Goals Section No Information Health Concerns No Information MEDICAL EQUIPMENT No Information MENTAL STATUS No Information FUNCTIONAL STATUS No Information ASSESSMENTS Encounter Date Diagnosis Assessment Notes Treatment Notes Treatm ent Clinical Notes Oct, Hypertensive heart disease without heart failure (ICD-10 - I11.9) Blood pressure elevated in office. As patient is not currently monitoring blood pressure outside of the office we will have her monitor and follow up at next appointment. Oct, Type 2 diabetes mellitus wit h complication, without long-term current use of insulin (ICD-10 - E11.8) Stable, continue current medication Oct, Acquired hypothyroidism (ICD-10 - E03.9) Stable, continue current medication Oct, Primary osteoarthritis of both knees (ICD-10 - M 17.0) No new concerns, continue current medication Oct, Hyperlipidemia (ICD-10 - E78.5) Continue current medication Oct, Skin change (ICD-10 - R23.9) Clinical appearance raises suspicion for actinic keratosis. She will be scheduled for evaluation with shave biopsy PLAN OF TREATMENT Medication Medication Name Sig Start Date Stop Date Voltaren 1 % apply Transdermal bid for 90 days Apr, Naproxen Sodium ER 500 mg 1 tablet Orally daily PRN for 90 days Benicar 20 mg 1 tab(s) Orally daily for 90 days Zetia 10 mg 1 tablet Orally Once a day for 90 days Metformin HCl 500 mg 1 tablet with meals Orally before bedtime f or 90 days Levothyroxine Sodium 112 MCG 1 tablet on an empty stom ach in the morning Orally Once a day for 90 days Treatment Notes Assessment Notes Clinical Notes Hypertensive heart disease without heart failure Blood pressure elevated in office. As patient is not currently monitoring blood pressure outside of the office we will have her monitor and follow up at next appointment. Type 2 diabetes mellitus with complicati on, without long-term current use of insulin Stable, continue current med ication Acquired hypothyroidism Stable, continue current medication Primary osteoarthritis of both knees No new concerns, continue current medication Hyperlipidemia Continue current med ication Skin change Clinical appearance raises suspicion for actinic keratosis. She will be scheduled for evaluation with shave biopsy Next Appt Details 2-4 weeks: shave biopsy: 30 min appt Lebo son: Provider Name:Rena Collins, 2020-11 08:30:00 AM, [place], [address], Insurance Providers Payer Name Payer Address Payer Phone Insured Name Patient Relati onship to Insured Coverage Start Date Coverage End Date [employer]BS [place] P[employer] [phone] [facility] [place] THOMAS RIOS [facility] [id number] SNEHA FELDMAN MEDICARE Part A and B [address] [place] [id number] [phone] SNEHA FELDMAN
[2020-11-08] MEDS ORDERED: FLUTISP (07:36)
[2020-11-08] MEDS ORDERED: SYMB80INH (07:36)
[2020-11-08] MEDS ORDERED: OLME20TA2 (07:36)
[2020-11-08] MEDS ORDERED: METF500T13 (07:36)
[2020-11-08] MEDS ORDERED: NAPR1TAB83 (07:36)
[2020-11-08] MEDS ORDERED: EZET10TA21 (07:36)
[2020-11-08] MEDS ORDERED: LEVO112T2 (07:36)
[2020-11-08 08:06] LABS: BASO % 0.6 % (0.0-1.0); EOS # 0.6 10^3/uL (0.0-0.5); EOS % 10.5 % (0.0-3.0); HEMATOCRIT 45.8 % (36.0-47.0); HEMOGLOBIN 14.9 g/dl (12.0-15.5); LYMPH # 1.5 10^3/uL (1.5-5.0); LYMPH % 27.3 % (24.0-44.0); MEAN CORPUSCULAR HGB CONC 32.5 g/dl (32.0-36.5); MEAN CORPUSCULAR VOLUME 95.4 fl (80.0-96.0); MONO # 0.4 10^3/uL (0.0-0.8); MONO % 7.6 % (0.0-5.0); NEUTROPHILS # 2.9 10^3/uL (1.5-8.5); NEUTROPHILS % 53.8 % (36.0-66.0); PLATELET COUNT, AUTOMATED 256 10^3/uL (150-450); WHITE BLOOD COUNT 5.4 10^3/uL (4.0-10.0)
--- NOTE | 2020-11-08 08:07 | REP ---
INDICATION: vertigo COMPARISON: None. TECHNIQUE: Axial noncontrast images from the skull base to the thoracic inlet with coronal reformations. This CT examination was performed using the following dose reduction techniques: Automated exposure control, adjustment of mA and/or kv according to the patient's size, and use of iterative reconstruction technique. FINDINGS: Age-related atrophy and microvascular ischemic changes are appreciated. The ventricles and sulci are symmetric. Martin-white differentiation is maintained. There is no evidence for acute intracranial hemorrhage, mass/mass effect, pathology or infarction. No extra-axial fluid collection. Calvarium is intact. Paranasal sinuses and mastoid air cells are clear. IMPRESSION: Age related atrophy and microvascular ischemic changes. No acute intracranial hemorrhage, infarction, or mass/mass effect. <Electronically signed by Miki Barrett > 11/08/20 0875
--- NOTE | 2020-11-08 08:15 | REP ---
INDICATION: elevated blood pressure COMPARISON: 02/17/2017 TECHNIQUE: Portable AP view of the chest FINDINGS: The mediastinum and cardiac silhouette are stable and within normal limits for portable technique. The lung rodgers are clear without acute consolidation, effusion, or pneumothorax. Skeletal structures are intact. IMPRESSION: No acute cardiopulmonary process appreciated. <Electronically signed by Miki Barrett > 11/08/20 0811
--- OUTSIDE RECORDS SUMMARY | 2020-11-08 08:20 | CCD ---
Author Author [facility] Organization [facility] Address Unknown Phone Unavailable Care Team Providers Care Public Relations Account Supervisor Name Role Phone JUAN HORNE MD [...] CHROSTOWSKI, JUAN LOCKHART Unavailable Unavailable CHROSTOWSKI, JUAN MD Unavailable Unavailable CHROSTOWSKI, JUAN MD Unavailable Unavailable CHROSTOWSKI, JUAN MD Unavailable Unavailable Glenn, L Jayna CAGE MAKER Unavailable Unavailable [place], L Jayna CAGE MAKER Unavailable Unavailable Glenn, L Jayna CAGE MAKER Unavailable Unavailable Glenn, L Jayna CAGE MAKER Unavailable Unavailable [place], L Jayna CAGE MAKER Unavailable Unavailable [place], L Jayna CAGE MAKER Unavailable Unavailable [place], L Jayna CAGE MAKER Unavailable Unavailable Glenn, L Jayna CAGE MAKER Unavailable Unavailable [place], L Jayna CAGE MAKER Unavailable Unavailable Glenn, L Jayna CAGE MAKER Unavailable Unavailable [place], L Jayna CAGE MAKER Unavailable Unavailable Glenn, L Jayna CAGE MAKER Unavailable Unavailable [place], L Jayna CAGE MAKER Unavailable Unavailable Glenn, L Jayna CAGE MAKER Unavailable Unavailable Glenn, L Jayna CAGE MAKER Unavailable Unavailable Glenn, L Jayna CAGE MAKER Unavailable Unavailable Glenn, L Jayna CAGE MAKER Unavailable Unavailable Glenn, L Ajyna CAGE MAKER Unavailable Unavailable Glenn, L Jayna CAGE MAKER Unavailable Unavailable Glenn, L Jayna CAGE MAKER Unavailable Unavailable Glenn, L Jayna CAGE MAKER Unavailable Unavailable Glenn, L Jayna CAGE MAKER Unavailable Unavailable [place], L Jayna CAGE MAKER Unavailable Unavailable [place], L Jayna CAGE MAKER Unavailable Unavailable Glenn, L Jayna CAGE MAKER Unavailable Unavailable Glenn, L Jayna CAGE MAKER Unavailable Unavailable [place], L Jayna CAGE MAKER Unavailable Unavailable [place], L Jayna CAGE MAKER Unavailable Unavailable Glenn, L Jayna CAGE MAKER Unavailable Unavailable [place], L Jayna CAGE MAKER Unavailable Unavailable Glenn, L Jayna CAGE MAKER Unavailable Unavailable Glenn, L Jayna CAGE MAKER Unavailable Unavailable Glenn, L Jayna CAGE MAKER Unavailable Unavailable Re-disclosure Warning The records that [...] is protected by Article 27-F of the [facility] Public Health law. If you continue you may have access to information: Regarding HIV / AIDS; Provided by facilities licensed or operated by the [facility] Office of Mental Health; or Provided by the [facility] Office for People With Developmental Disabilities. If such information is present, then the following [facility] mandated warning applies: This information [...] law may result in a fine or correction sentence or both. A general authorization for the release of medical or other information is NOT sufficient authorization for further disc losure. Encounters Encounter Providers Location Date Indications Data Source(s ) Outpatient Attender: JUAN HORNE MD Main Office 10/16/2020 08:15:00 AM EST MEDENT ([facility] Outpatient [address] [facility] [id number] 10/15/2020 12:00:00 AM EST eCW1 ([facility]) Outpatient [address] [facility] [id number] 07/04/2020 12:00:00 AM EDT eCW1 ([facility]) Outpatient Attender: Jayna ALMODOVAR Main Office 10/17/2019 08:30:0 0 AM EST MED[facility] ([facility] [place] [address] [place] [id number] 10/09/2019 12:00:00 AM EST eCW1 ([facility]) [facility] Yeimi Ng [address] [place] [address] 10/05/2019 12:00:00 AM EST eCW1 ([facility]) Immunizations Vaccine Date Status Description Data Source(s) influenza, recombinant, quadrIvalent,injectable, prese rvative free 07/04/2020 02:09:00 PM EDT completed eCW1 ([facility]) influenza, recombinant, quadrIvalent,injectable, prese rvative free 07/04/2020 02:09:00 PM EDT completed eCW1 ([facility]) Tdap 04/04/2020 10:27:00 AM EDT completed e CW1 ([facility]) Tdap 04/04/2020 10:27:00 AM EDT completed e CW1 ([facility]) pneumococcal polysaccharide PPV23 04/04/2020 10:26:00 AM EDT comple ranjan eCW1 ([facility]) pneumococcal polysaccharide PPV23 04/04/2020 10:26:00 AM EDT comple ranjan eCW1 ([facility]) Medications Medication Brand Name Start Date Product Form Dose Route Admi nistrative Instructions Pharmacy Instructions Status Indications Reaction Description Data Source(s) Budesonide 0.08 MG/ACTUAT / formoterol f umarate 0.0045 MG/ACTUAT Metered Dose Inhaler Symbicort 80-4.5 mcg/actuation inhalation HFA aerosol inhaler Symbicort 80-4.5 mcg/actuation inhalation HFA aerosol inhaler 10/07/2018 11:35:51 AM EST 0 completed Symbicort ZINA BANKS ([facility]) fluticasone 50 mcg/actuation nasal spray,suspension Fl uticasone propionate 0.05 MG/ACTUAT Metered Dose Nasal [place] 10/07/2018 11:35:50 AM EST 0 completed fluticasone [facility] Insurance Providers Payer name Policy type / Coverage type Policy ID Covered republican ID Covered republican's relationship to you Policy You Plan Information MEDICARE [id number] SP [id number] [place] P[place] 302/[id number] SP [id number] [place]/[id number] SP [id number] Medicare [place] [id number] 18 [id number] [facility] [id number] 18 [id number] ANSI-Commercial [id number] ANSI-Medicare Part B [id number] ANSI-Commercial [id number] ANSI-Medicare Part B [id number] ANSI-Medicare Part B [id number] ANSI-Commercial [id number] ANSI-Medicare Part B [id number] ANSI-Commercial [id number] BCBS ..[id number] Blue Cross/Blue Shield [id number] Medicare [id number] Medicare Part B [id number] ANSI-Commercial [id number] [facility]-Medicare Part B [id number] ANSI-Commercial [id number] ANS-Medicare Part B [id number] MEDICARE [id number] SP [id number] A Medicare [place] [id number] 18 [id number] [place]/307 [id number] SP [id number] MEDICARE [id number] SP [id number] A SELF PAY 5 UNAVAILABLE 1 UNAVAILA BLE BLUE [place]OSS [place] 1 [id number] 1 [id number] Problems, Conditions, and Diagnoses Code Display Name Description Problem Type Effective Dates Data Source(s) Z23 [id number] Encounter for immunization Problem 0 12:00:00 AM EDT eCW1 ([facility]) I11.9 Hypertensive heart disease without conge stive heart failure Hypertensive heart disease without heart failure Problem 04/04/2020 12:00:00 AM E DT eCW1 ([facility]) E03.9 [id number] Acquired hypothyroidism Problem 04/04/2020 1 2:00:00 AM EDT eCW1 ([facility]) [id number] Allergic rhinitis caused by mold Allergi c rhinitis caused by mold Problem 10/17/2019 12:00:00 AM EST MEDENT ([facility]) Note: 3+ reaction to mold spores on intr adermal test completed in 2017. Surgeries/Procedures Procedure Description Date Indications Data Source(s) BRNCDILAT RSPSE SPMTRY PRE&POST-BRNCDILAT ADMN 021 12:00:00 AM EST [facility] ([facility]) Immunization: Flublok Quadrivalent (18 years & older) 0.5mL IM (Influenza) 07/04/2020 12:00:00 AM EDT eCW1 ([facility]) BRNCDILAT RSPSE SPMTRY PRE&POST-BRNCDILAT ADMN 020 12:00:00 AM EST [facility] ([facility]) Office Visit, Est Pt., Level 2 FC 10/09/2019 12:00:00 AM EST eCW1 ([facility]) Office Visit, Est Pt., Level 4 PC 10/09/2019 12:00:00 AM EST eCW1 ([facility]) VENIPUNCT, ROUTINE* 10/05/2019 12:00:00 AM EST eCW1 ([facility]) Results ID Date Data Source TSH 10/05/2019 12:00:00 AM EST eCW1 ([facility]) Name Value Range Interpretation Code Description Data Teresa rce(s) Supporting Document(s) 1.640 0.358-3.740 THYROID STIMULATING HORM ONE eCW1 ([facility]) ID Date Data Source LIPID PANEL (CARDIAC RISK) 10/05/2019 12:00:00 AM EST eCW1 ( [facility]) Name Value Range Interpretation Code Description Data Teresa rce(s) Supporting Document(s) Triglyceride [Mass/volume] in Serum or Plasma by calculation 221 <150 TRIGLYCERIDES LEVEL W1 ([facility]) 167 NON-HDL-C eCW1 ([facility]) Cholesterol in LDL [Mass/volume] in Serum or Plasma by calculation 123 <100 LDL CHOLESTEROL [facility] ([facility]) 4.036 <5 CHOLESTEROL RISK RATIO eCW1 ([facility]) Cholesterol [Moles/volume] in Serum or Plasma 222 <200 CHOLESTEROL LEVEL [facility] ([facility]) Cholesterol in HDL [Moles/volume] in Serum or Plasma 55 >40 HDL CHOLESTEROL W1 ([facility]) ID Date Data Source [id number] 10/05/2019 12:00:00 AM EST eCW1 ([facility]) Name Value Range Interpretation Code Description Data Teresa rce(s) Supporting Document(s) Hemoglobin A1c/Hemoglobin.total in Blood 6.2 HEMOGLOBIN A1c eCW1 ([facility]) ID Date Data Source Comprehensive Metabolic Profile (CMP) 10/05/2019 12:00:00 AM EST eCW1 ([facility]) Name Value Range Interpretation Code Description Data Teresa rce(s) Supporting Document(s) 119 70-100 GLUCOSE, FASTING eCW1 ([facility]) 19 7-18 BLOOD UREA NITROGEN eCW1 ([facility]) 4.4 3.5-5.1 POTASSIUM SERUM eCW1 ([facility]) > 60.0 >39 GLOMERULAR FILTRATION RATE eCW 1 ([facility]) 0.95 0.55-1.30 CREATININE FOR GFR eCW1 (Replaced by [facility]) 142 136-145 SODIUM LEVEL eCW1 ([facility]) 110 98-107 CHLORIDE LEVEL eCW1 ([facility]) 19 12-78 ALT/SGPT eCW1 ([facility]) 23 21-32 CARBON DIOXIDE LEVEL eCW1 ([facility]) 16 7-37 AST/SGOT eCW1 ([facility]) 9.3 8.8-10.2 CALCIUM LEVEL eCW1 ([facility]) 57 45-117 ALKALINE PHOSPHATASE eCW1 ([facility]) 0.6 0.2-1.0 BILIRUBIN,TOTAL eCW1 ([facility]) 6.5 6.4-8.2 TOTAL PROTEIN eCW1 ([facility]) 3.8 3.2-5.2 ALBUMIN eCW1 ([facility]) 1.41 1.00-1.93 ALBUMIN/GLOBULIN RATIO eCW1 ([facility]) ID Date Data Source CBC 10/05/2019 12:00:00 AM EST eCW1 ([facility]) Name Value Range Interpretation Code Description Data Teresa rce(s) Supporting Document(s) 13.9 12.0-15.5 HEMOGLOBIN eCW1 ([facility]) 4.39 4.00-5.40 RED BLOOD COUNT eCW1 ([facility]) 41.7 36.0-47.0 HEMATOCRIT eCW1 ([facility]) 6.8 4.0-10.0 WHITE BLOOD COUNT eCW1 ([facility]) 12.4 11.5-14.5 RED CELL DISTRIBUTION WID TH eCW1 ([facility]) 31.7 27.0-33.0 MEAN CORPUSCULAR HEMOGLOB IN eCW1 ([facility]) 33.3 32.0-36.5 MEAN CORPUSCULAR HGB CONC eCW1 ([facility]) 250 150-450 PLATELET COUNT, AUTOMATED eCW1 ([facility]) 95.0 80.0-96.0 MEAN CORPUSCULAR VOLUME e CW1 ([facility]) Procedure Social History Code Duration Value Status Description Data Source(s ) Smoking 10/16/2020 12:00:00 AM EST Patient has never smoked co mpleted Patient has never smoked [facility] ([facility] ) Smoking 10/15/2020 12:00:00 AM EST Never Smoker completed Never S moker eCW1 ([facility]) Smoking 07/04/2020 12:00:00 AM EDT Never Smoker completed Never S moker eCW1 ([facility]) Vital Signs ID Date Data Source [...] [facility]) Diastolic blood pressure 84 mm[Hg] 84 mm[Hg] eCW1 ([facility]) Systolic blood pressure 164 mm[Hg] 164 mm[Hg] e CW1 ([facility]) Body temperature 98.4 [degF] 98.4 [degF] eCW1 ( [facility]) Respiratory rate 18 /min 18 /min eCW1 ([facility]) Heart rate 74 /min 74 /min eCW1 ([facility]) Body mass index (BMI) [Ratio] 32.93 kg/m2 32.93 kg/m2 eCW1 ([facility]) Body height [in_i] eCW1 ([facility]) Body weight 223 [lb_av] 223 [lb_av] eCW1 (Replaced by [facility]) Diastolic blood pressure 80 mm[Hg] 80 mm[Hg] eCW1 ([facility]) Systolic blood pressure 156 mm[Hg] 156 mm[Hg] e CW1 ([facility]) Body temperature 98 [degF] 98 [degF] eCW1 ([facility]) Respiratory rate 18 /min 18 /min eCW1 ([facility]) Heart rate 80 /min 80 /min eCW1 ([facility]) Body mass index (BMI) [Ratio] 32.19 kg/m2 32.19 kg/m2 eCW1 ([facility]) Body height [in_i] eCW1 ([facility]) Body weight [lb_av] eCW1 ([facility]) Body mass index (BMI) [Ratio] 32.7 kg/m2 32.7 k g/m2 MED[facility] ([facility]) Diastolic blood pressure 81 mm[Hg] 81 mm[Hg] MED[facility] ([facility]) Systolic blood pressure 136 mm[Hg] 136 mm[Hg] M EDENT ([facility]) Respiratory rate 20 /min 20 /min MEDENT [...] blood pressure 96 mm[Hg] 96 mm[Hg] eCW1 ([facility]) Systolic blood pressure 162 mm[Hg] 162 mm[Hg] e CW1 ([facility]) Body temperature 97.4 [degF] 97.4 [degF] eCW1 ( [facility]) Respiratory rate 18 /min 18 /min eCW1 ([facility]) Heart rate 68 /min 68 /min eCW1 ([facility]) Body mass index (BMI) [Ratio] 32.19 kg/m2 32.19 kg/m2 eCW1 ([facility]) Body height [in_us] eCW1 ([facility]) Body weight Measured 218 [lb_av] 218 [lb_av] eC W1 ([facility]) Patient Treatment Plan of Care Planned Activity Planned Date Details Description Data Source (s) Budesonide 0.08 MG/ACTUAT / formoterol f umarate 0.0045 MG/ACTUAT Metered Dose Inhaler 10/07/2018 11:35:[address] ([facility]) fluticasone 50 mcg/actuation nasal spray,suspension 10/07/19 11:35:50 AM EST [place]DO ([facility])
[2020-11-08 08:24] LABS: ERYTHROCYTE SEDIMENTATION RATE 7 mm/hr (0-30)
[2020-11-08 08:43] LABS: ALBUMIN 4.2 GM/DL (3.2-5.2); ALT/SGPT 25 U/L (12-78); BILIRUBIN,DIRECT 0.1 MG/DL (0.0-0.2); BILIRUBIN,TOTAL 0.6 MG/DL (0.2-1.0); BLOOD UREA NITROGEN 22 MG/DL (7-18); CALCIUM LEVEL 9.7 MG/DL (8.8-10.2); CARBON DIOXIDE LEVEL 26 MEQ/L (21-32); CHLORIDE LEVEL 109 MEQ/L (98-107); CK-MB VALUE MASS < 1.0 NG/ML (<3.6); CPK CREATINE PHOSPHOKINASE 63 U/L (26-192); CREATININE FOR GFR 1.14 MG/DL (0.55-1.30); GLOMERULAR FILTRATION RATE 49.7 (>39); GLUCOSE, FASTING 147 MG/DL (70-100); MB/CK RELATIVE INDEX 1.59 (< OR =4); NT-PRO BNP 43 PG/ML (<125); POTASSIUM SERUM 4.7 MEQ/L (3.5-5.1); SODIUM LEVEL 142 MEQ/L (136-145); TOTAL PROTEIN 6.9 GM/DL (6.4-8.2); TROPONIN I < 0.02 NG/ML (< 0.10)
[2020-11-08] MEDS ORDERED: amLODIPine 5 MG TAB PO ONE (11:15)
[2020-11-08 12:22] VITALS: BP 187/80
[2020-11-08] MEDS ORDERED: AMLO1TAB24 PO (14:02)
[2020-11-08 14:25] VITALS: BP 164/89
--- NOTE | 2020-11-08 19:38 | ECGEPIP ---
[facility] - ED Test Date: 2020-11-08 Pat Name: SNEHA FELDMAN Department: Room: - Gender: Female Companion Caregiver: : 1945 Requested By: JIM Dumont Order Number: [id number] Reading MD: Seng Greco Measurements Intervals [place] Rate: 67 P: 54 OK: 159 QRS: -4 QRSD: 89 T: 44 QT: 392 QTc: 415 Interpretive Statements SINUS RHYTHM WITH SINUS ARRHYTHMIA NO PRIORS FOR COMPARISON Electronically Signed on 11-08-2020 19:37:49 EST by Seng Greco
== END 2020-11-08 14:32 | disposition home or self-care (01) ==
LOC: M ED 07:19
DX: I10 Essential (primary) hypertension (principal); J45.909 Unspecified asthma, uncomplicated; E78.5 Hyperlipidemia, unspecified

== ENCOUNTER → 2020-11-20 | Outpatient (REF) | payer MEDICARE, BC ==
[~2020-11-20] MED LIST: AMLO1TAB24 PO; EZET10TA21; FLUTISP; LEVO112T2; METF500T13; NAPR1TAB83; OLME20TA2; SYMB80INH
[2020-11-20 16:16] LABS: CALCIUM LEVEL 9.7 MG/DL (8.8-10.2); CREATININE FOR GFR 1.1 MG/DL (0.55-1.30); GLOMERULAR FILTRATION RATE 51.8 (>39); POTASSIUM SERUM 4.7 MEQ/L (3.5-5.1)
== END ==
LOC: M SFHCCLAY 09:12
PROVIDERS: ATTEND Family Medicine
DX: I11.9 Hypertensive heart disease without heart failure (principal); L57.0 Actinic keratosis; L57.8 Other skin changes due to chronic exposure to nonionizing radiation
CPT/HCPCS: 11102; 80048; 88305; G0463

== ENCOUNTER → 2020-12-10 | Outpatient (REF) | payer MEDICARE, BC | LOC: M SFHCCLAY 10:29 | PROVIDERS: ATTEND Physician Assistant | DX: R30.0 Dysuria (principal) | CPT/HCPCS: 81002; 87088; 87186; G0463 ==

== ENCOUNTER → 2020-12-16 | Outpatient (REF) | payer MEDICARE, BC | LOC: M SFHCCLAY 08:46 | PROVIDERS: ATTEND Physician Assistant | DX: R30.0 Dysuria (principal) ==

== ENCOUNTER → 2021-03-17 | Outpatient (REF) | payer MEDICARE, BC ==
[2021-03-17 18:40] LABS: CALCIUM LEVEL 10.3 MG/DL (8.8-10.2); CHOLESTEROL RISK RATIO 3.762 (<5); CREATININE FOR GFR 1.08 MG/DL (0.55-1.30); FREE T4 1.45 NG/DL (0.76-1.46); GLOMERULAR FILTRATION RATE 52.8 (>39); POTASSIUM SERUM 4.6 MEQ/L (3.5-5.1); THYROID STIMULATING HORMONE 1.52 uIU/ML (0.358-3.740)
[2021-03-17 18:46] LABS: CREATININE, URINE 78.9 MG/DL; MALB URINE SIEMENS 12.9 MG/L; MAU/CREAT RATIO 16.3 MCG/MG (0.0-30.0)
[2021-03-17 19:42] LABS: HEMOGLOBIN A1c 6.7 %
== END ==
LOC: M SFHCCAPE 07:45
PROVIDERS: ATTEND Family Medicine
DX: E03.9 Hypothyroidism, unspecified (principal); E11.8 Type 2 diabetes mellitus with unspecified complications; I11.9 Hypertensive heart disease without heart failure

== ENCOUNTER → 2021-04-23 | Outpatient (CLI) | payer MEDICARE, BC ==
--- NOTE | 2021-04-23 10:02 | REP ---
INDICATION: COUGH. COMPARISON: Comparison chest x-ray November 08, 2020. TECHNIQUE: Two views.. FINDINGS: The lungs are well inflated and clear. The pleural angles are sharp. There is an eventration of the right hemidiaphragm unchanged. Pulmonary vasculature is not increased. The thoracic aorta is somewhat dilated and tortuous as before. The heart is enlarged. Cardiothoracic ratio is 53.1%. Pulmonary vasculature is not increased. No acute bony abnormality. IMPRESSION: Cardiomegaly. Otherwise no active disease.. <Electronically signed by Soham Nicholson > 04/23/21 0941
== END ==
LOC: M CLY 08:51
PROVIDERS: ATTEND Family Medicine
DX: I51.7 Cardiomegaly (principal); R05 Cough
CPT/HCPCS: 71046; G0463

== ENCOUNTER → 2021-08-14 | Outpatient (REF) | payer MEDICARE, BC ==
[2021-08-14 16:57] LABS: CALCIUM LEVEL 9.7 MG/DL (8.8-10.2); CREATININE FOR GFR 1.12 MG/DL (0.55-1.30); FREE T4 1.42 NG/DL (0.76-1.46); GLOMERULAR FILTRATION RATE 50.6 (>39); POTASSIUM SERUM 4.7 MEQ/L (3.5-5.1); THYROID STIMULATING HORMONE 1.58 uIU/ML (0.358-3.740)
== END ==
LOC: M SFHCCAPE 07:51
PROVIDERS: ATTEND Family Medicine
DX: I11.9 Hypertensive heart disease without heart failure (principal); E11.9 Type 2 diabetes mellitus without complications; E03.9 Hypothyroidism, unspecified

== ENCOUNTER → 2021-09-22 | Outpatient (CLI) | payer MEDICARE, BC | LOC: M WHC 08:37 | PROVIDERS: ATTEND Family Medicine | DX: Z12.31 Encounter for screening mammogram for malignant neoplasm of breast (principal) ==

== ENCOUNTER → 2021-12-02 | Outpatient (REF) | payer MEDICARE, BC | LOC: M SFHCCLAY 10:05 | PROVIDERS: ATTEND Physician Assistant | DX: R30.0 Dysuria (principal) ==

== ENCOUNTER → 2022-03-24 | Outpatient (REF) | payer MEDICARE, BC ==
[2022-03-24 16:39] LABS: FREE T4 1.21 NG/DL (0.76-1.46); THYROID STIMULATING HORMONE 11.7 uIU/ML (0.358-3.740)
== END ==
LOC: M SFHCCAPE 07:30
PROVIDERS: ATTEND Family Medicine
DX: E03.9 Hypothyroidism, unspecified (principal)

== ENCOUNTER → 2022-08-12 | Outpatient (REF) | payer MEDICARE, BC ==
[2022-08-12 18:31] LABS: CALCIUM LEVEL 10.2 MG/DL (8.8-10.2); CREATININE FOR GFR 1.04 MG/DL (0.55-1.30); FREE T4 1.2 NG/DL (0.76-1.46); POTASSIUM SERUM 4.6 MEQ/L (3.5-5.1); THYROID STIMULATING HORMONE 11.2 uIU/ML (0.358-3.740)
[2022-08-12 21:07] LABS: HEMOGLOBIN A1c 5.9 %
== END ==
LOC: M SFHCCAPE 07:42
PROVIDERS: ATTEND Nurse Practitioner Family
DX: E03.9 Hypothyroidism, unspecified (principal); E11.9 Type 2 diabetes mellitus without complications; I11.9 Hypertensive heart disease without heart failure

== ENCOUNTER → 2022-09-29 | Outpatient (CLI) | payer MEDICARE, BC | LOC: M WHC 08:55 | PROVIDERS: ATTEND Nurse Practitioner Family | DX: Z12.31 Encounter for screening mammogram for malignant neoplasm of breast (principal) ==

== ENCOUNTER → 2022-10-20 | Outpatient (REF) | payer MEDICARE, BC ==
[2022-10-20 18:21] LABS: FREE T4 1.29 NG/DL (0.89-1.76); THYROID STIMULATING HORMONE 6.834 uIU/ML (0.55-4.78)
== END ==
LOC: M SFHCCAPE 08:13
PROVIDERS: ATTEND Nurse Practitioner Family
DX: E03.9 Hypothyroidism, unspecified (principal)

== ENCOUNTER → 2022-11-04 | Outpatient (REF) | payer MEDICARE, BC ==
[2022-11-04 14:09] LABS: APPEARANCE, URINE MANUAL HAZY (CLEAR); BILIRUBIN, URINE MANUAL NEGATIVE (NEGATIVE); BLOOD URINE MANUAL NEGATIVE (NEGATIVE); COLOR, URINE MANUAL YELLOW (YELLOW); GLUCOSE, URINE (UA) MANUAL NEGATIVE (NEGATIVE); KETONE, URINE MANUAL NEGATIVE (NEGATIVE); LEUKOCYTE ESTERASE, URINE MAN POSITIVE (NEGATIVE); NITRITE, URINE MANUAL NEGATIVE (NEGATIVE); PH,URINE MAN 6.5 UNITS (5.0 - 7.0); PROTEIN, URINE MANUAL TRACE mg/dL (NEGATIVE); UROBILINOGEN, URINE MANUAL NORMAL (NORMAL)
[2022-11-04 14:29] LABS: WBC, URINE TNTC /hpf (0-3)
[2022-11-04 14:37] LABS: BACTERIA, URINE MOD AMOUNT; HYALINE CAST, URINE 0-1 /lpf (0-1); MUCUS, URINE SMALL AMOUNT (NEGATIVE); SQUAMOUS EPITHELIAL CELL URINE LARGE AMOUNT /hpf (SMALL AMT)
== END ==
LOC: M SMT 13:38
PROVIDERS: ATTEND Urology
DX: R35.0 Frequency of micturition (principal)

== ENCOUNTER → 2023-03-03 | Outpatient (REF) | payer MEDICARE, BC ==
[~2023-03-03] MED LIST changes: +FLUT50SP17; -FLUTISP
[2023-03-03 17:51] LABS: CALCIUM LEVEL 9.3 MG/DL (8.3-10.6); CHOLESTEROL RISK RATIO 3.17 (<5); CREATININE FOR GFR 0.97 MG/DL (0.55-1.30); GLOMERULAR FILTRATION RATE 59.4 (>39); LDL CHOLESTEROL 122.8 MG/DL (<100); POTASSIUM SERUM 4.9 MMOL/L (3.5-5.1)
[2023-03-03 17:53] LABS: FREE T4 1.52 NG/DL (0.89-1.76)
[2023-03-03 17:54] LABS: THYROID STIMULATING HORMONE 3.874 uIU/ML (0.55-4.78)
[2023-03-03 18:04] LABS: HEMOGLOBIN A1c 5.9 % (4.0-6.0)
== END ==
LOC: M SFHCCAPE 07:21
PROVIDERS: ATTEND Nurse Practitioner Family
DX: E78.5 Hyperlipidemia, unspecified (principal); E03.9 Hypothyroidism, unspecified; E11.9 Type 2 diabetes mellitus without complications

== ENCOUNTER → 2023-03-19 | Outpatient (REF) | payer MEDICARE, BC ==
[2023-03-19 17:50] LABS: APPEARANCE, URINE CLEAR (CLEAR); BACTERIA, URINE AUTO 1+ (NEGATIVE); BILIRUBIN, URINE AUTO NEGATIVE (NEGATIVE); BLOOD, URINE BLOOD NEGATIVE (NEGATIVE); COLOR, URINE STRAW (YELLOW); GLUCOSE, URINE (UA) AUTO NEGATIVE (NEGATIVE); KETONE, URINE AUTO NEGATIVE (NEGATIVE); LEUKOCYTE ESTERASE, URINE AUTO 2+ (NEGATIVE); NITRITE, URINE AUTO NEGATIVE (NEGATIVE); PROTEIN, URINE AUTO NEGATIVE (NEGATIVE); RBC, URINE AUTO 1 /HPF (0-3); SPECIFIC GRAVITY URINE AUTO 1.009 (1.002-1.035); SQUAMOUS EPITHELIAL CELL UR AU 2 /HPF (0-6); UROBILINOGEN, URINE AUTO 0.2 mg/dL (0.0-2.0); WBC, URINE AUTO 19 /HPF (0-3)
== END ==
LOC: M SMT 17:21
PROVIDERS: ATTEND Urology
DX: N32.81 Overactive bladder (principal)

== ENCOUNTER → 2023-04-30 | Outpatient (REF) | payer MEDICARE, BC ==
[2023-04-30 14:03] LABS: APPEARANCE, URINE CLEAR (CLEAR); BACTERIA, URINE AUTO 1+ (NEGATIVE); BILIRUBIN, URINE AUTO NEGATIVE (NEGATIVE); BLOOD, URINE BLOOD NEGATIVE (NEGATIVE); COLOR, URINE YELLOW (YELLOW); GLUCOSE, URINE (UA) AUTO NEGATIVE (NEGATIVE); KETONE, URINE AUTO NEGATIVE (NEGATIVE); LEUKOCYTE ESTERASE, URINE AUTO NEGATIVE (NEGATIVE); NITRITE, URINE AUTO NEGATIVE (NEGATIVE); PROTEIN, URINE AUTO NEGATIVE (NEGATIVE); RBC, URINE AUTO 0 /HPF (0-3); SPECIFIC GRAVITY URINE AUTO 1.014 (1.002-1.035); SQUAMOUS EPITHELIAL CELL UR AU 1 /HPF (0-6); UROBILINOGEN, URINE AUTO 0.2 mg/dL (0.0-2.0); WBC, URINE AUTO 1 /HPF (0-3)
== END ==
LOC: M SMT 13:07
PROVIDERS: ATTEND Urology
DX: N32.81 Overactive bladder (principal); Z79.899 Other long term (current) drug therapy

== ENCOUNTER → 2023-09-01 | Outpatient (REF) | payer MEDICARE, BC ==
[2023-09-01 17:55] LABS: ALBUMIN 3.8 G/DL (3.2-5.2); ALKALINE PHOSPHATASE 67 U/L (46-116); ALT/SGPT 24 U/L (7.0-40); AST/SGOT 17 U/L (<34); BILIRUBIN,TOTAL 0.6 MG/DL (0.3-1.2); BLOOD UREA NITROGEN 19 MG/DL (9-23); CALCIUM LEVEL 9.4 MG/DL (8.3-10.6); CARBON DIOXIDE LEVEL 25 MMOL/L (20-31); CHLORIDE LEVEL 109 MMOL/L (98-107); CHOLESTEROL LEVEL 235 MG/DL (<200); CHOLESTEROL RISK RATIO 3.67 (<5); CREATININE FOR GFR 0.87 MG/DL (0.55-1.30); GLOMERULAR FILTRATION RATE > 60.0 (>39); GLUCOSE, FASTING 140 MG/DL (74-106); HDL CHOLESTEROL 63.9 MG/DL (>40); LDL CHOLESTEROL 134.7 MG/DL (<100); NON-HDL-C 171.1 MG/DL; POTASSIUM SERUM 4.7 MMOL/L (3.5-5.1); SODIUM LEVEL 142 MMOL/L (136-145); TOTAL PROTEIN 6.7 G/DL (5.7-8.2); TRIGLYCERIDES LEVEL 182 MG/DL (<150)
[2023-09-01 17:56] LABS: FREE T4 1.54 NG/DL (0.89-1.76)
[2023-09-01 18:20] LABS: HEMOGLOBIN A1c 6.2 % (4.0-6.0)
[2023-09-01 18:21] LABS: THYROID STIMULATING HORMONE 3.054 uIU/ML (0.55-4.78)
== END ==
LOC: M SFHCCAPE 08:14
PROVIDERS: ATTEND Nurse Practitioner Family
DX: E78.5 Hyperlipidemia, unspecified (principal); E03.9 Hypothyroidism, unspecified; E11.9 Type 2 diabetes mellitus without complications; I10 Essential (primary) hypertension; N32.81 Overactive bladder

== ENCOUNTER → 2023-12-29 | Outpatient (CLI) | payer MEDICARE, BC ==
[~2023-12-29] MED LIST changes: -FLUT50SP17; +FLUTISP; -OLME20TA2; +OLME20TA50
== END ==
LOC: M WHC 09:15
PROVIDERS: ATTEND Nurse Practitioner Family
DX: Z12.31 Encounter for screening mammogram for malignant neoplasm of breast (principal)

== ENCOUNTER → 2024-03-08 | Outpatient (REF) | payer MEDICARE, BC ==
[2024-03-08 18:44] LABS: HEMOGLOBIN A1c 6.8 % (4.0-6.0)
[2024-03-08 18:51] LABS: CREATININE, URINE 82.1 MG/DL
[2024-03-08 18:52] LABS: MALB URINE SIEMENS < 3.0 MG/L; MAU/CREAT RATIO 3.6 MCG/MG (0.0-30.0)
[2024-03-08 18:54] LABS: THYROID STIMULATING HORMONE 5.889 uIU/ML (0.55-4.78)
[2024-03-08 18:57] LABS: ALBUMIN 3.8 G/DL (3.2-5.2); ALKALINE PHOSPHATASE 65 U/L (46-116); ALT/SGPT 21 U/L (7.0-40); AST/SGOT 11 U/L (<34); BILIRUBIN,TOTAL 0.5 MG/DL (0.3-1.2); BLOOD UREA NITROGEN 22 MG/DL (9-23); CALCIUM LEVEL 10.3 MG/DL (8.3-10.6); CARBON DIOXIDE LEVEL 23 MMOL/L (20-31); CHLORIDE LEVEL 109 MMOL/L (98-107); CHOLESTEROL LEVEL 212 MG/DL (<200); CHOLESTEROL RISK RATIO 3.56 (<5); CREATININE FOR GFR 0.94 MG/DL (0.55-1.30); FREE T4 1.37 NG/DL (0.89-1.76); GLOMERULAR FILTRATION RATE > 60.0 (>39); GLUCOSE, FASTING 166 MG/DL (74-106); HDL CHOLESTEROL 59.5 MG/DL (>40); LDL CHOLESTEROL 114.5 MG/DL (<100); NON-HDL-C 152.5 MG/DL; POTASSIUM SERUM 5.1 MMOL/L (3.5-5.1); SODIUM LEVEL 141 MMOL/L (136-145); TOTAL PROTEIN 6.5 G/DL (5.7-8.2); TRIGLYCERIDES LEVEL 190 MG/DL (<150)
== END ==
LOC: M SFHCCAPE 07:43
PROVIDERS: ATTEND Nurse Practitioner Family
DX: E78.5 Hyperlipidemia, unspecified (principal); E03.9 Hypothyroidism, unspecified; I10 Essential (primary) hypertension; E11.9 Type 2 diabetes mellitus without complications

== ENCOUNTER → 2024-06-21 | Outpatient (REF) | payer MEDICARE, BC ==
[2024-06-21 18:45] LABS: HEMOGLOBIN A1c 5.4 % (4.0-6.0)
[2024-06-21 19:01] LABS: ALBUMIN 3.9 G/DL (3.2-5.2); BILIRUBIN,TOTAL 0.4 MG/DL (0.3-1.2); CALCIUM LEVEL 10.2 MG/DL (8.3-10.6); CREATININE FOR GFR 0.98 MG/DL (0.55-1.30); GLOMERULAR FILTRATION RATE 58.6 (>39); POTASSIUM SERUM 4.6 MMOL/L (3.5-5.1); TOTAL PROTEIN 6.5 G/DL (5.7-8.2)
== END ==
LOC: M SFHCCAPE 07:43
PROVIDERS: ATTEND Nurse Practitioner Family
DX: E11.9 Type 2 diabetes mellitus without complications (principal)

== ENCOUNTER → 2024-09-05 | Outpatient (REF) | payer MEDICARE, BC ==
[2024-09-05 17:59] LABS: HEMOGLOBIN A1c 5.5 % (4.0-6.0)
[2024-09-05 18:04] LABS: ALBUMIN 3.4 G/DL (3.2-5.2); BILIRUBIN,TOTAL 0.3 MG/DL (0.3-1.2); CALCIUM LEVEL 10.4 MG/DL (8.3-10.6); CHOLESTEROL RISK RATIO 4.73 (<5); CREATININE FOR GFR 1.03 MG/DL (0.55-1.30); GLOMERULAR FILTRATION RATE 55.3 (>39); HDL CHOLESTEROL 46.7 MG/DL (>40); LDL CHOLESTEROL 142.9 MG/DL (<100); NON-HDL-C 174.3 MG/DL; POTASSIUM SERUM 4.8 MMOL/L (3.5-5.1); THYROID STIMULATING HORMONE 4.275 uIU/ML (0.55-4.78); TOTAL PROTEIN 6.6 G/DL (5.7-8.2)
[2024-09-05 18:05] LABS: FREE T4 1.59 NG/DL (0.89-1.76)
== END ==
LOC: M SFHCCAPE 07:45
PROVIDERS: ATTEND Nurse Practitioner Family
DX: E03.9 Hypothyroidism, unspecified (principal); E78.5 Hyperlipidemia, unspecified; E11.9 Type 2 diabetes mellitus without complications; I10 Essential (primary) hypertension; N32.81 Overactive bladder

== ENCOUNTER → 2024-12-29 | Outpatient (CLI) | payer MEDICARE, BC | LOC: M WHC 11:05 | PROVIDERS: ATTEND Nurse Practitioner Family | DX: Z12.31 Encounter for screening mammogram for malignant neoplasm of breast (principal) ==

== ENCOUNTER → 2025-09-04 | Outpatient (REF) | payer MEDICARE, BC ==
[~2025-09-04] MED LIST changes: -EZET10TA21; +EZET10TA57
[2025-09-04 18:21] LABS: ALT/SGPT 15.0 U/L (7.0-40); AST/SGOT 19.0 U/L (<34); CALCIUM LEVEL 9.3 MG/DL (8.3-10.6); CARBON DIOXIDE LEVEL 25.0 MMOL/L (20-31); CHLORIDE LEVEL 110.0 MMOL/L (98-107); CHOLESTEROL LEVEL 213.0 MG/DL (<200); CHOLESTEROL RISK RATIO 3.42 (<5); CREATININE FOR GFR 0.97 MG/DL (0.55-1.30); FREE T4 1.54 NG/DL (0.89-1.76); GLOMERULAR FILTRATION RATE 59.8 (>39); LDL CHOLESTEROL 126.3 MG/DL (<100); NON-HDL-C 150.9 MG/DL; POTASSIUM SERUM 4.7 MMOL/L (3.5-5.1); SODIUM LEVEL 146.0 MMOL/L (136-145); TRIGLYCERIDES LEVEL 123.0 MG/DL (<150)
[2025-09-04 18:24] LABS: ESTIMATED AVERAGE GLUCOSE 114.0 MG/DL (60-110)
== END ==
LOC: M SFHCCAPE 07:56
PROVIDERS: ATTEND Nurse Practitioner Family
DX: E03.9 Hypothyroidism, unspecified (principal); E78.5 Hyperlipidemia, unspecified; E11.9 Type 2 diabetes mellitus without complications; I10 Essential (primary) hypertension; N32.81 Overactive bladder